=== PATIENT | male | born 1985 | race Caucasian/White ===

== ENCOUNTER 2022-09-03 10:32 | Emergency (ER) | payer OTHER, SELFPAY ==
[2022-09-03 10:43] VITALS: BP 153/82; PULSE 96; RESP 16; TEMP 37.2; O2SAT 99
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
[2022-09-03] MEDS: SILVER SULFADIAZINE 1% CR 50 GM JAR (*BKC) 1 APPLIC TOPICAL (11:15)
== END 2022-09-03 11:30 | disposition home or self-care (01) ==
PROVIDERS: Emergency Provider Nurse Practitioner Family; PCP Internal Medicine
DX: T14.8XXA Other injury of unspecified body region, initial encounter (principal); V43.52XA Car driver injured in collision with other type car in traffic accident, initial encounter; T21.22XA Burn of second degree of abdominal wall, initial encounter; W22.11XA Striking against or struck by driver side automobile airbag, initial encounter
CPT/HCPCS: 99213; A9270; G0463